=== PATIENT | male | born 1950 | race Caucasian/White ===

== ENCOUNTER → 2017-08-12 | Outpatient (REF) | payer MEDICARE ==
[2017-08-12 16:15] LABS: THYROGLOBULIN ANTIBODY 26.2 U/ML (<60.0)
[2017-08-19 08:31] LABS: THYROGLOBULIN ANTIBODY <1.8; THYROGLOBULIN INTERPRETATION SEE SEPARATE REPORT; THYROGLOBULIN TUMOR MARKER <0.1
== END ==
LOC: M LABDRAW1 11:56
DX: C73 Malignant neoplasm of thyroid gland (principal)
CPT/HCPCS: 86800

== ENCOUNTER → 2017-08-19 | Outpatient (REF) | payer MEDICARE ==
[2017-08-19 13:10] LABS: FREE T4 1.22 NG/DL (0.76-1.46); THYROID STIMULATING HORMONE 0.167 uIU/ML (0.358-3.740)
== END ==
LOC: M LABDRAW1 10:48
DX: E89.0 Postprocedural hypothyroidism (principal)
CPT/HCPCS: 84443

== ENCOUNTER → 2017-10-25 | Outpatient (REF) | payer MEDICARE, OTHER ==
[2017-10-25 17:59] LABS: FREE T4 1.32 NG/DL (0.76-1.46); THYROID STIMULATING HORMONE 0.035 uIU/ML (0.358-3.740)
== END ==
LOC: M LABDRAW1 15:55
DX: C73 Malignant neoplasm of thyroid gland (principal)
CPT/HCPCS: 84443

== ENCOUNTER → 2018-07-28 | Outpatient (REF) | payer MEDICARE, OTHER ==
[2018-07-28 16:33] LABS: ALBUMIN 3.9 GM/DL (3.2-5.2); ALT/SGPT 37 U/L (12-78); BILIRUBIN,TOTAL 0.5 MG/DL (0.2-1.0); BLOOD UREA NITROGEN 12 MG/DL (7-18); CALCIUM LEVEL 8.7 MG/DL (8.8-10.2); CARBON DIOXIDE LEVEL 30 MEQ/L (21-32); CHLORIDE LEVEL 106 MEQ/L (98-107); CHOLESTEROL LEVEL 139 MG/DL (<200); CHOLESTEROL RISK RATIO 3.159 (<5); CREATININE FOR GFR 0.73 MG/DL (0.70-1.30); FREE T4 1.19 NG/DL (0.76-1.46); GLOMERULAR FILTRATION RATE > 60.0 (>49); GLUCOSE, FASTING 98 MG/DL (70-100); HDL CHOLESTEROL 44 MG/DL (>40); LDL CHOLESTEROL 79 MG/DL (<100); NON-HDL-C 95 MG/DL; SODIUM LEVEL 142 MEQ/L (136-145); THYROID STIMULATING HORMONE 0.424 uIU/ML (0.358-3.740); TRIGLYCERIDES LEVEL 79 MG/DL (<150)
[2018-07-28 16:36] LABS: HEMATOCRIT 46.1 % (42.0-52.0); HEMOGLOBIN 15.1 g/dl (13.5-17.5); MEAN CORPUSCULAR HEMOGLOBIN 28.9 pg (27.0-33.0); MEAN CORPUSCULAR HGB CONC 32.8 g/dl (32.0-36.5); MEAN CORPUSCULAR VOLUME 88.1 fl (80.0-96.0); PLATELET COUNT, AUTOMATED 240 10^3/uL (150-450); RED BLOOD COUNT 5.23 10^6/uL (4.30-6.10); WHITE BLOOD COUNT 9.6 10^3/uL (4.0-10.0)
[2018-07-28 17:06] LABS: MALB URINE SIEMENS 98.7 MG/L; MAU/CREAT RATIO 61.6 MCG/MG (0.0-30.0)
[2018-07-28 20:26] LABS: HEMOGLOBIN A1c 7.2 %
== END ==
LOC: M LABDRAW1 11:52
PROVIDERS: ATTEND Family Medicine
DX: C73 Malignant neoplasm of thyroid gland (principal); E11.9 Type 2 diabetes mellitus without complications; Z12.5 Encounter for screening for malignant neoplasm of prostate
CPT/HCPCS: 36415; 80053; 80061; 82043; 83036; 84439; 84443; 85027; G0103

== ENCOUNTER → 2018-08-11 | Outpatient (REF) | payer MEDICARE, OTHER ==
[2018-08-11 16:49] LABS: FREE T4 1.13 NG/DL (0.76-1.46); THYROGLOBULIN ANTIBODY < 15.0 U/ML (<60.0); THYROID STIMULATING HORMONE 0.445 uIU/ML (0.358-3.740)
[2018-08-15 14:31] LABS: THRYOGLOBULIN ANTIBODIES (ATA) < 1.0 IU/mL (0.0-0.9); THYROGLOBULIN QUANTITATIVE < 0.1 ng/mL (1.4-29.2)
== END ==
LOC: M LABDRAW1 15:29
PROVIDERS: ATTEND Nurse Practitioner Family
DX: E89.0 Postprocedural hypothyroidism (principal)

== ENCOUNTER 2018-10-26 10:31 | Day surgery (SDC) | payer MEDICARE ==
[~2018-10-26] VITALS: Ht 172.7 cm; Wt 87.5 kg
[~2018-10-26 10:31] MED LIST: AMLO5TAB6 PO; ATOR1TAB19 PO; BYDU1INJ SC; GLIM2TAB29 PO; LISI40TA PO; METF10004 PO; NS 1,000 ML IV ONE; SYNT125T PO; VARD20TA PO
[2018-10-26] MEDS ORDERED: LIDOCAINE 2% INJ 100 MG/5 ML SDV (FOR ANES.) As Ordered ONE (12:40)
[2018-10-26] MEDS ORDERED: PROPOFOL 200 MG/20 ML VIAL As Ordered ONE (12:40)
--- NOTE | 2018-10-26 13:21 | ROOR ---
Patient Name: Juan Manuel Leon Procedure Date: 10/26/2018 12:40 PM Date of : 1950 Age: 67 Room: [facility] Gender: Male Note Status: Finalized Procedure: Upper GI endoscopy Indications: Dysphagia Providers: Henrry Giron MD Referring MD: Bharath Clay MD Requesting Provider: Medicines: Monitored Anesthesia Care Complications: No immediate complications. Procedure: Pre-Anesthesia Assessment: - Prior to the procedure, a History and Physical was performed, and patient medications and allergies were reviewed. The patient is competent. The risks and benefits of the procedure and the sedation options and risks were discussed with the patient. All questions were answered and informed consent was obtained. Patient identification and proposed procedure were verified by the physician in the procedure room. Mental Status Examination: normal. Airway Examination: normal oropharyngeal airway and neck mobility. Respiratory Examination: clear to auscultation. CV Examination: normal. Prophylactic Antibiotics: The patient does not require prophylactic antibiotics. Prior Anticoagulants: The patient has taken no previous anticoagulant or antiplatelet agents. ASA Grade Assessment: II - A patient with mild systemic disease. After reviewing the risks and benefits, the patient was deemed in satisfactory condition to undergo the procedure. The anesthesia plan was to use monitored anesthesia care (MAC). Immediately prior to administration of medications, the patient was re-assessed for adequacy to receive sedatives. The heart rate, respiratory rate, oxygen saturations, blood pressure, adequacy of pulmonary ventilation, and response to care were monitored throughout the procedure. The physical status of the patient was re-assessed after the procedure. The Endoscope was introduced through the mouth, and advanced to the second part of duodenum. The upper GI endoscopy was accomplished without difficulty. The patient tolerated the procedure well. Findings: LA Grade A (one or more mucosal breaks less than 5 mm, not extending between tops of 2 mucosal folds) esophagitis with no bleeding was found in the distal esophagus. Biopsies were taken with a cold forceps for histology. Biopsies were obtained from the proximal and distal esophagus with cold forceps for histology of suspected eosinophilic esophagitis. Verification of patient identification for the specimen was done by the physician and nurse using the patient's name, date and medical record number. The Z-line was irregular and was found 40 cm from the incisors. Scattered mild inflammation characterized by erythema, friability and granularity was found in the gastric antrum. Biopsies were taken with a cold forceps for Helicobacter pylori testing. One 15 mm submucosal papule (nodule) with no bleeding and no stigmata of recent bleeding was found in the gastric antrum. Biopsies were taken with a cold forceps for histology. The duodenal bulb and second portion of the duodenum were normal. Impression: - LA Grade A reflux esophagitis. Biopsied. - Z-line irregular, 40 cm from the incisors. - Gastritis. Biopsied. - One submucosal papule (nodule) found in the stomach. Biopsied. - Normal duodenal bulb and second portion of the duodenum. Recommendation: - Patient has a contact number available for emergencies. The signs and symptoms of potential delayed complications were discussed with the patient. Return to normal activities tomorrow. Written discharge instructions were provided to the patient. - High fiber diet. - Continue present medications. - Follow an antireflux regimen. - Use Protonix (pantoprazole) 40 mg PO daily - to be taken [employer] 1/2 hour before breakfast for 8 weeks. - Telephone GI clinic for pathology results in 2 weeks. - Perform an upper endoscopic ultrasound (UEUS) after studies are complete. - Return to primary care physician. Henrry Giron MD eHnrry Giron MD 10/26/2018 1:21:13 PM Electronically signed by Henrry Giron MD Number of Addenda: 0 Note Initiated On: 10/26/2018 12:40 PM Estimated Blood Loss: Estimated blood loss was minimal.
[2018-10-26 13:31] VITALS: BP 148/87
== END 2018-10-26 13:33 | disposition home or self-care (01) ==
LOC: M OPP 10:31
PROVIDERS: ATTEND Internal Medicine Gastroenterology
DX: K21.0 Gastro-esophageal reflux disease with esophagitis (principal); K22.8 Other specified diseases of esophagus; K29.70 Gastritis, unspecified, without bleeding; K31.89 Other diseases of stomach and duodenum; R13.10 Dysphagia, unspecified; G47.30 Sleep apnea, unspecified; E11.9 Type 2 diabetes mellitus without complications; Z79.84 Long term (current) use of oral hypoglycemic drugs; Z79.899 Other long term (current) drug therapy; Z85.850 Personal history of malignant neoplasm of thyroid

== ENCOUNTER → 2018-11-13 | Outpatient (REF) | payer MEDICARE ==
[~2018-11-13] MED LIST changes: -NS 1,000 ML IV ONE
[2018-11-13 16:52] LABS: BLOOD UREA NITROGEN 16 MG/DL (7-18); CARBON DIOXIDE LEVEL 28 MEQ/L (21-32); CHLORIDE LEVEL 105 MEQ/L (98-107); CREATININE FOR GFR 0.81 MG/DL (0.70-1.30); GLOMERULAR FILTRATION RATE > 60.0 (>49); GLUCOSE, FASTING 85 MG/DL (70-100); POTASSIUM SERUM 3.5 MEQ/L (3.5-5.1); SODIUM LEVEL 142 MEQ/L (136-145)
== END ==
LOC: M LABDRAW1 15:59
PROVIDERS: ATTEND Family Medicine
DX: E11.9 Type 2 diabetes mellitus without complications (principal)

== ENCOUNTER → 2019-08-21 | Outpatient (CLI) | payer MEDICARE, OTHER ==
[~2019-08-21] MED LIST changes: +AMLO1TAB24 PO; -AMLO5TAB6 PO
--- NOTE | 2019-08-21 17:59 | REP ---
REASON: History of fracture. There are no priors for comparison. Patient has a history of a fracture involving the 5th digit of the right foot. There is a healing fracture involving the mid diaphysis of the proximal phalanx of the 5th digit of the right foot. There are no additional fracture either acute or chronic. There are some degenerative changes seen throughout the foot. IMPRESSION: Healing fracture, as described above. Electronically Signed by Lew Sparks DO 08/22/2019 09:36 A
== END ==
LOC: M ADAMS 10:44
PROVIDERS: ATTEND Family Medicine
DX: S92.354D Nondisplaced fracture of fifth metatarsal bone, right foot, subsequent encounter for fracture with routine healing (principal); X58.XXXD Exposure to other specified factors, subsequent encounter